=== PATIENT | female | born 1960 | race American Indian/Alaskan Native ===

== ENCOUNTER 2019-04-18 11:49 | Outpatient (CLI) | payer OTHER ==
--- NOTE | 2019-04-18 14:34 | Ultrasound Report ---
RIGHT DIGITAL DIAGNOSTIC MAMMOGRAM WITH CAD -- 04/18/2019 LEFT LIMITED BREAST ULTRASOUND INDICATION: Right mammographic asymmetry and a left inferior mammographic asymmetry. TECHNIQUE: Digital right mammographic imaging was performed. Magnification views were obtained. This examination was interpreted with the benefit of Computer-Aided Detection (CAD) analysis. COMPARISON: 04/04/2019 screening mammogram FINDINGS: Breast Density: The breasts are heterogeneously dense, which may obscure small masses. MAMMOGRAPHIC FINDINGS: There is no evidence of dominant mass, suspicious calcifications or architectu ral distortion in the right breast. Satisfactory effacement of the right inferior mammographic asymme try on spot magnification view a right lateral view is also negative. ULTRASOUND FINDINGS: Targeted ultrasound evaluation was performed of the area of interest. A benign anechoic cyst at 8:00 8 cm from the nipple measuring 2.0 x 1.5 x 0.7 cm. It correlates with the prev iously identified left mammographic asymmetry. IMPRESSION: Negative right mammogram and a benign 2 cm cyst of the left breast at 8:00. No suspicious finding in either breast. Follow up recommendation: Routine yearly BI-RADS Category 2: Benign. A "normal" or negative report should not discourage follow up or biopsy of a clinically significant f inding. A written summary of these findings will be mailed to the patient. The patient will be entered into a mammography reporting system which will generate a reminder letter for the patient's next appointmen t at the appropriate interval. According to the [employer], yearly mammograms are recommended starting at age 40 and continuing as long as a woman is in good health. Breast MRI is recommended for women with an rosalia roximately 20-25% or greater lifetime risk of breast cancer, including women with a strong family his tory of breast or ovarian cancer and women who have been treated for Hodgkin's disease. Signer Name: Ravinder Chávez MD Signed: 04/18/2019 2:29 PM Workstation Name: [id number]
== END 2019-04-18 11:50 | disposition home or self-care (01) ==
LOC: SPVWC 11:49
PROVIDERS: ATTEND Surgery
DX: N60.12 Diffuse cystic mastopathy of left breast (principal); N60.11 Diffuse cystic mastopathy of right breast; Z80.3 Family history of malignant neoplasm of breast

== ENCOUNTER 2020-05-22 13:10 | Outpatient (CLI) | payer OTHER ==
--- NOTE | 2020-05-23 09:57 | Magnetic Resonance Report ---
Bilateral breast MRI with and without contrast. History: Family history of breast cancer Procedure: Axial T1 and T2-weighted fat-sat images were obtained precontrast. 15 cc MultiHance was i njected intravenously and serial axial T1-weighted images with fat saturation were obtained postcontr ast. 3-D MIP projections, Kinetic analysis and subtraction imaging was utilized to evaluate. A [employer] 8 channel breast coil was utilized for image acquisition. Comparison: MR breast 11/15/2014, bilateral mammogram 04/04/2019, left breast ultrasound 04/18/2019 Findings: Background level of enhancement is mild. No suspicious axillary or clavicular nodes are identified. No abnormal bone marrow signal is seen. No significant chest wall enhancement is noted. Right breast: No suspicious lesions are seen. Left breast: Mild stippled and vascular type enhancement is seen. No suspicious lesions are noted. Impression: No suspicious lesions are seen BIRADS: 2: Benign Signer Name: Pradip Beckford MD Signed: 05/23/2020 9:53 AM Workstation Name: [id number]
== END 2020-05-22 13:11 | disposition home or self-care (01) ==
LOC: SPVIMAG 13:10
PROVIDERS: ATTEND Surgery
DX: R92.2 Inconclusive mammogram (principal); Z80.3 Family history of malignant neoplasm of breast
CPT/HCPCS: A9577; C8908; 77049

== ENCOUNTER 2022-01-03 14:47 | Outpatient (CLI) | payer OTHER ==
--- NOTE | 2022-01-03 16:14 | Ultrasound Report ---
ULTRASOUND BREAST RIGHT LIMITED, 01/03/2022 CLINICAL INFORMATION / INDICATION: N64.4 MASTODYNIA. Patient presents for evaluation of an area of fo keily pain in the right breast, though the patient states she is currently not experiencing any pain. TECHNIQUE: Targeted ultrasound evaluation was performed of the area of interest. COMPARISON: Prior mammogram 01/15/2021 FINDINGS: Targeted ultrasound of the area of focal pain in the 6 through 9:00 position of the right breast is u nremarkable. No suspicious cystic or solid lesion identified. IMPRESSION: 1. There is no sonographic abnormality to account for the area of focal pain in the right breast, the refore, correlation is recommended. 2. Patient will soon be due for bilateral mammogram, for which she has an upcoming appointment in Jan. Follow up recommendation: Back to schedule. BI-RADS Category 1: NEGATIVE. A normal or "negative" report should not preclude biopsy or follow-up of a clinically suspicious find ing. Signer Name: Ladonna Hudson MD Signed: 01/03/2022 4:09 PM Workstation Name: [id number]
== END 2022-01-03 14:48 | disposition home or self-care (01) ==
LOC: US 14:47
PROVIDERS: ATTEND Surgery
DX: N64.4 Mastodynia (principal); N60.19 Diffuse cystic mastopathy of unspecified breast; Z80.3 Family history of malignant neoplasm of breast; Z68.25 Body mass index [BMI] 25.0-25.9, adult

== ENCOUNTER 2022-01-22 10:06 | Outpatient (CLI) | payer OTHER ==
--- NOTE | 2022-01-23 09:15 | Mammography Report ---
DIGITAL SCREENING MAMMOGRAM WITH CAD, 01/22/2022 CLINICAL INFORMATION / INDICATION: Routine screening mammography. TECHNIQUE: Digital bilateral 2D mammography was obtained in the craniocaudal and mediolateral obliqu e projections. This examination was interpreted with the benefit of Computer-Aided Detection analysis . COMPARISON: Prior mammogram 01/15/2021 and 04/04/2019 FINDINGS: Breast Density: There are scattered areas of fibroglandular density. No dominant mass, suspicious calcifications, or architectural distortion in either breast. There is stable benign postreduction change seen in both breasts. IMPRESSION: No mammographic evidence of malignancy. Follow up recommendation: Routine yearly screening mammogram. BI-RADS Category 2: BENIGN. A "normal" or negative report should not discourage follow up or biopsy of a clinically significant f inding. A written summary of these findings will be mailed to the patient. The patient will be entered into a mammography reporting system which will generate a reminder letter for the patient's next appointmen t at the appropriate interval. The [employer] recommends yearly mammograms starting at age 40 and continuing as l beatriz as a woman is in good health. Breast MRI is recommended for women with an approximate 20-25% or greater lifetime risk of breast cancer, including women with a strong family history of breast or ova fawad cancer or who have been treated for Hodgkin's disease. Signer Name: Ladonna Hudson MD Signed: 01/23/2022 9:11 AM Workstation Name: [id number]
== END 2022-01-22 10:07 | disposition home or self-care (01) ==
LOC: SPVWC 10:06
PROVIDERS: ATTEND Surgery
DX: Z12.31 Encounter for screening mammogram for malignant neoplasm of breast (principal)
CPT/HCPCS: 77067